=== PATIENT | female | born 1975 | race Caucasian/White ===

== ENCOUNTER 2017-09-28 14:32 | Observation (INO) ==
[2017-09-28 15:34] LABS: Apearance,Urine Slightly Hazy (Clear); Bacteria,Urine Occasional /HPF (Few); Bilirubin,Urine Negative (Negative); Blood, Urine Negative (Negative); Glucose,Urine (UA) Negative (Negative); Ketones,Urine Negative (Negative); Nitrite,Urine Negative (Negative); Protein,Urine Negative; Squamous Epithelial Cell,Urine Few /HPF (0-10); Urine Color Yellow (Yellow); Urine Specific Gravity 1.003 (1.001-1.035); Urine Urobilinogen < 2.0 EU/DL (0.2-1.0); WBC,Urine 1 /HPF (0-6)
[2017-09-28] MEDS ORDERED: SODIUM CHLORIDE 0.9% 1,000 ML IV STA (16:01)
[2017-09-28] MEDS ORDERED: PROMETHAZINE INJ 25 MG in SODIUM CHLORIDE 0.9% 50 ML IV STA (16:01)
[2017-09-28] MEDS ORDERED: PROMETHAZINE 25 MG/1 ML VIAL ONE (16:08)
[2017-09-28] MEDS ORDERED: PANTOPRAZOLE 40 MG VIAL IV STA (17:43)
[2017-09-28] MEDS ORDERED: FAMOTIDINE 20 MG/2 ML VIAL IV STA (17:43)
[2017-09-28] MEDS ORDERED: PANTOPRAZOLE 40 MG VIAL IV ONE (17:45)
[2017-09-28] MEDS ORDERED: FAMOTIDINE 20 MG/2 ML VIAL IV ONE (17:45)
[2017-09-28 17:57] LABS: Basophils % 0.1 % (0.0-0.8); Eosinophils # 0.1 10*3/uL (0.0-0.87); Eosinophils % 0.4 % (0.00-10.9); Hematocrit 35.6 VOL% (35.7-47.0); Immature Granulocytes % 0.5 %; Immature Granulocytes Absolute 0.07 #; Lymphocytes # 3.6 10*3/uL (1.4-4.0); Lymphocytes % 26.7 % (21.3-54.2); Mean Corpuscular HGB Conc 36.5 GM/DL (32-36); Mean Corpuscular Hemoglobin 31 PG (27-34); Mean Corpuscular Volume 85.6 FL (87-102); Mean Platelet Volume 10.6 FL (9.6-12.0); Monocytes # 0.7 10*3/uL (0.11-0.8); Monocytes % 5.4 % (1.7-12.7); Neutrophils % 66.9 % (38.7-73.9); Platelet Count 293 T/CUMM (130-400); Red Blood Count 4.16 MC/CUMM (3.8-5.5); White Blood Count 13.5 T/CUMM (4-12)
[2017-09-28 18:15] LABS: Bilirubin,Total 0.4 MG/DL (0.2-1.0); Calcium 8.1 MG/DL (8.5-10.1); Potassium 2.7 MMOL/L (3.5-5.1)
[2017-09-28] MEDS ORDERED: POTASSIUM CHLORIDE 20 MEQ TABLET PO STA (18:59)
[2017-09-28] MEDS ORDERED: SODIUM CHLOR 0.9% KCL 40 MEQ 40 MEQ/1,000 ML BAG IV SCH ×2 (19:00→19:30)
[2017-09-28] MEDS ORDERED: POTASSIUM CHLORIDE 20 MEQ TABLET PO ONE (19:05)
[2017-09-28] MEDS ORDERED: SODIUM CHLOR 0.9% KCL 40 MEQ 40 MEQ/1,000 ML BAG IV ONE (19:39)
[2017-09-28] MEDS ORDERED: tiZANidine 4 MG TABLET PO PRN (22:16)
[2017-09-28] MEDS ORDERED: ONDANSETRON 4 MG/2 ML VIAL IV PRN (22:16)
[2017-09-28] MEDS ORDERED: ACETAMINOPHEN 325 MG TABLET PO PRN (22:16)
[2017-09-28] MEDS: chlorproMAZINE 25 MG TABLET PO SCH (23:06)
[2017-09-28] MEDS: AMITRIPTYLINE 75 MG TABLET PO SCH (23:06)
[2017-09-28] MEDS: clonazePAM 0.5 MG TABLET PO SCH (23:07)
[2017-09-28] MEDS: GABAPENTIN 300 MG CAPSULE PO SCH (23:07)
[2017-09-28] MEDS: PANTOPRAZOLE 40 MG VIAL IV SCH (23:09)
[2017-09-28] MEDS: methylPREDNISolone SOD SUC 40 MG/1 ML VIAL IV SCH (23:11)
[2017-09-28] MEDS: ALBUTEROL/IPRATROPIUM 3 ML NEB RESP TX SCH (23:41)
[2017-09-29] MEDS ORDERED: SODIUM CHLORIDE 0.9% 500 ML IV ONE ×2 (00:06→03:49)
[2017-09-29] MEDS: POTASSIUM CHLORIDE INJ 40 MEQ in SODIUM CHLORIDE 0.45% 1,000 ML IV SCH ×3 (01:11→18:28)
[2017-09-29] MEDS: ALBUTEROL/IPRATROPIUM 3 ML NEB RESP TX SCH ×3 (03:28→15:21)
[2017-09-29 04:11] LABS: Basophils % 0.1 % (0.0-0.8); Hematocrit 36.3 VOL% (35.7-47.0); Hemoglobin 12.9 GM/DL (12.0-16.0); Immature Granulocytes % 0.5 %; Immature Granulocytes Absolute 0.05 #; Lymphocytes # 0.9 10*3/uL (1.4-4.0); Mean Corpuscular HGB Conc 35.5 GM/DL (32-36); Mean Corpuscular Hemoglobin 31 PG (27-34); Mean Corpuscular Volume 87.1 FL (87-102); Mean Platelet Volume 10.7 FL (9.6-12.0); Monocytes # 0.2 10*3/uL (0.11-0.8); Monocytes % 2.4 % (1.7-12.7); Neutrophils # 8.6 10*3/uL (1.4-7.4); Platelet Count 262 T/CUMM (130-400); Red Blood Count 4.17 MC/CUMM (3.8-5.5); Red Cell Distribution Width 12.9 % (9.3-17.3); White Blood Count 9.8 T/CUMM (4-12)
[2017-09-29 04:36] LABS: Albumin 3.3 G/DL (3.4-5.0); Bilirubin,Total 0.9 MG/DL (0.2-1.0); Calcium 8.3 MG/DL (8.5-10.1); Potassium 3.2 MMOL/L (3.5-5.1); Total Protein 6.9 G/DL (6.4-8.3)
[2017-09-29] MEDS: methylPREDNISolone SOD SUC 40 MG/1 ML VIAL IV SCH ×3 (06:06→21:32)
[2017-09-29] MEDS: PANTOPRAZOLE 40 MG VIAL IV SCH ×2 (09:02→21:33)
[2017-09-29] MEDS: clonazePAM 0.5 MG TABLET PO SCH ×2 (09:02→21:31)
[2017-09-29] MEDS: AZITHROMYCIN 250 MG TABLET PO SCH (09:03)
[2017-09-29] MEDS: GABAPENTIN 300 MG CAPSULE PO SCH ×3 (09:03→21:30)
[2017-09-29] MEDS: ENOXAPARIN 40 MG/0.4 ML SYRINGE SUBCUT SCH (09:03)
[2017-09-29] MEDS: DIAZEPAM 5 MG TABLET PO SCH ×2 (09:37→21:35)
[2017-09-29] MEDS: POTASSIUM CHLORIDE 20 MEQ TABLET PO SCH ×3 (09:41→15:53)
[2017-09-29] MEDS: chlorproMAZINE 25 MG TABLET PO SCH (21:30)
[2017-09-29] MEDS: AMITRIPTYLINE 75 MG TABLET PO SCH (21:31)
[2017-09-30] MEDS: ALBUTEROL/IPRATROPIUM 3 ML NEB RESP TX SCH ×4 (00:06→23:46)
[2017-09-30] MEDS: POTASSIUM CHLORIDE INJ 40 MEQ in SODIUM CHLORIDE 0.45% 1,000 ML IV SCH ×2 (02:28→12:17)
[2017-09-30 03:41] LABS: Hematocrit 32.4 VOL% (35.7-47.0); Hemoglobin 12.1 GM/DL (12.0-16.0); Immature Granulocytes % 1.5 %; Immature Granulocytes Absolute 0.16 #; Lymphocytes % 9.7 % (21.3-54.2); Mean Corpuscular HGB Conc 37.3 GM/DL (32-36); Mean Corpuscular Hemoglobin 32 PG (27-34); Mean Corpuscular Volume 86.4 FL (87-102); Mean Platelet Volume 10.5 FL (9.6-12.0); Monocytes # 0.2 10*3/uL (0.11-0.8); Monocytes % 2.3 % (1.7-12.7); Neutrophils # 9.1 10*3/uL (1.4-7.4); Neutrophils % 86.5 % (38.7-73.9); Platelet Count 286 T/CUMM (130-400); Red Blood Count 3.75 MC/CUMM (3.8-5.5); Red Cell Distribution Width 13.2 % (9.3-17.3); White Blood Count 10.5 T/CUMM (4-12)
[2017-09-30 04:07] LABS: Calcium 8.2 MG/DL (8.5-10.1); Potassium 4.4 MMOL/L (3.5-5.1)
[2017-09-30] MEDS: methylPREDNISolone SOD SUC 40 MG/1 ML VIAL IV SCH (08:34)
[2017-09-30] MEDS: PANTOPRAZOLE 40 MG VIAL IV SCH ×2 (08:34→20:38)
[2017-09-30] MEDS: clonazePAM 0.5 MG TABLET PO SCH ×2 (08:35→20:37)
[2017-09-30] MEDS: ENOXAPARIN 40 MG/0.4 ML SYRINGE SUBCUT SCH (08:35)
[2017-09-30] MEDS: DIAZEPAM 5 MG TABLET PO SCH ×2 (08:35→20:37)
[2017-09-30] MEDS: AZITHROMYCIN 250 MG TABLET PO SCH (08:35)
[2017-09-30] MEDS: GABAPENTIN 300 MG CAPSULE PO SCH ×3 (08:35→20:38)
[2017-09-30] MEDS: METOCLOPRAMIDE 10 MG/10 ML UDCUP PO SCH ×3 (12:30→20:37)
[2017-09-30] MEDS: predniSONE 20 MG TABLET PO SCH (20:37)
[2017-09-30] MEDS: AMITRIPTYLINE 75 MG TABLET PO SCH (20:38)
[2017-10-01] MEDS: POTASSIUM CHLORIDE INJ 40 MEQ in SODIUM CHLORIDE 0.45% 1,000 ML IV SCH (01:45)
[2017-10-01 05:39] LABS: Basophils % 0.1 % (0.0-0.8); Eosinophils % 0.1 % (0.00-10.9); Hematocrit 33.6 VOL% (35.7-47.0); Hemoglobin 11.9 GM/DL (12.0-16.0); Immature Granulocytes % 1.9 %; Immature Granulocytes Absolute 0.18 #; Lymphocytes % 20.2 % (21.3-54.2); Mean Corpuscular HGB Conc 35.4 GM/DL (32-36); Mean Corpuscular Hemoglobin 32 PG (27-34); Mean Corpuscular Volume 89.4 FL (87-102); Mean Platelet Volume 9.8 FL (9.6-12.0); Monocytes # 0.4 10*3/uL (0.11-0.8); Monocytes % 4.5 % (1.7-12.7); NRBC # 0.02 10*3/uL; Neutrophils # 7.1 10*3/uL (1.4-7.4); Neutrophils % 73.2 % (38.7-73.9); Platelet Count 240 T/CUMM (130-400); Red Blood Count 3.76 MC/CUMM (3.8-5.5); Red Cell Distribution Width 13.7 % (9.3-17.3); White Blood Count 9.7 T/CUMM (4-12)
[2017-10-01 06:10] LABS: Albumin 2.8 G/DL (3.4-5.0); Bilirubin,Total 0.7 MG/DL (0.2-1.0); Calcium 8.1 MG/DL (8.5-10.1); Osmolality,Calculated 282.1 MOS/KG (273-304); Potassium 4.3 MMOL/L (3.5-5.1); Total Protein 6.2 G/DL (6.4-8.3)
[2017-10-01] MEDS: ALBUTEROL/IPRATROPIUM 3 ML NEB RESP TX SCH (07:42)
[2017-10-01] MEDS: METOCLOPRAMIDE 10 MG/10 ML UDCUP PO SCH ×3 (07:51→15:43)
[2017-10-01] MEDS ORDERED: MIDAZOLAM 2 MG/2 ML VIAL ONE (09:22)
[2017-10-01] MEDS ORDERED: LIDOCAINE 100 MG/5 ML SYRINGE ONE (10:59)
[2017-10-01] MEDS ORDERED: PROPOFOL 200 MG/20 ML VIAL IV ONE (10:59)
[2017-10-01] MEDS: clonazePAM 0.5 MG TABLET PO SCH (11:36)
[2017-10-01] MEDS: GABAPENTIN 300 MG CAPSULE PO SCH ×2 (11:36→15:42)
[2017-10-01] MEDS: DIAZEPAM 5 MG TABLET PO SCH (15:37)
[2017-10-01] MEDS: PANTOPRAZOLE 40 MG VIAL IV SCH (15:41)
[2017-10-01] MEDS: predniSONE 20 MG TABLET PO SCH (15:42)
[2017-10-01] MEDS: AZITHROMYCIN 250 MG TABLET PO SCH (15:45)
[2017-10-01 16:40] VITALS: BP 140/86
[2017-10-01] MEDS ORDERED: PANTOPRAZOLE 40 MG TABLET PO SCH (19:00)
== END 2017-10-01 17:10 | disposition home or self-care (01) ==
LOC: N.ED 14:32 → N.EDINP 14:32 → SUATTDRO 20:31 → N.EDINP 21:47 → N.3E 21:55
PROVIDERS: ADMIT Internal Medicine; ATTEND Internal Medicine Geriatric Medicine